=== PATIENT | male | born 1980 | race African-American/Black ===

== ENCOUNTER 2016-11-15 03:35 | Observation (INO) | payer SELFPAY ==
[~2016-11-15] VITALS: Ht 180.3 cm; Wt 80.0 kg
[2016-11-15] VITALS (7 sets, daily range): BP systolic 119–161; BP diastolic 63–95; PULSE 65–93; RESP 14–19; TEMP 97.5–98.3; O2SAT 95–100
[2016-11-15] MEDS: SODIUM CHLOR 0.9% 1000 ML INJ 1,000 ML IV SCH ×3 (03:00→15:40)
[2016-11-15] MEDS ORDERED: SODIUM CHLOR 0.9% 1000 ML INJ 1,000 ML IV ONE (05:00)
[2016-11-15] MEDS ORDERED: DIVA500T PO (05:38)
[2016-11-15] MEDS ORDERED: OLAN5TAB PO (05:38)
[2016-11-15 05:51] LABS: BASOPHIL % 0.4 % (0.0-2.0); EOSINOPHIL # 0.1 TH/MM3 (0-0.4); EOSINOPHIL % 0.9 % (0.0-4.0); HEMATOCRIT 40.8 % (39.0-51.0); HEMO FLAGS DIFF FINAL; LYMPH % 20.6 % (9.0-44.0); LYMPHOCYTE # 2.3 TH/MM3 (1.0-4.8); MEAN CELL VOLUME 93.1 FL (80.0-100.0); MEAN CORPUSCULAR HEMOGLOBIN 32.3 PG (27.0-34.0); MEAN CORPUSCULAR HGB CONC 34.7 % (32.0-36.0); MONO % 14.2 % (0.0-8.0); NEUT % 63.9 % (16.0-70.0); PLATELET COUNT 153 TH/MM3 (150-450); RED BLOOD COUNT 4.38 MIL/MM3 (4.50-5.90); RED CELL DISTRIBUTION WIDTH 13.6 % (11.6-17.2)
[2016-11-15 06:09] LABS: ALT (GPT) 31 U/L (12-78); ANION GAP 11 MEQ/L (5-15); AST (GOT) 30 U/L (15-37); BICARBONATE 24.3 MEQ/L (21.0-32.0); BLOOD UREA NITROGEN 17 MG/DL (7-18); CHLORIDE 104 MEQ/L (98-107); GLOMERULAR FILTRATION RATE 73 ML/MIN (>89); POTASSIUM 3.7 MEQ/L (3.5-5.1); SODIUM (NA) 139 MEQ/L (136-145)
[2016-11-15 06:11] LABS: ALKALINE PHOSPHATASE 60 U/L (45-117); TOTAL BILIRUBIN ADULT 0.5 MG/DL (0.2-1.0)
[2016-11-15 06:13] LABS: ACETAMINOPHEN LESS THAN 2.0 MCG/ML (10.0-30.0)
[2016-11-15] MEDS ORDERED: ACTIVATED CHARCOAL/SORBITOL LIQUID 25 GM/120 ML BTL NG ONE (07:00)
--- NOTE | 2016-11-15 08:22 | PD ---
HPI Chief Complaint: Suicide Ideation/Attempt Time Seen by Provider: 04:44 Travel History International Travel<30 days: No Contact w/Intl Traveler<30days: No Traveled to known affect area: No History of Present Illness HPI Patient is a 36 year old male who comes in after an intentional overdose in a suicide attempt today. He says he took several Depakote and two Zyprexa this evening in an attempt to kill himself. He also admits to using cocaine. Currently, he has no specific symptoms. He denies any chest pain or SOB. He denies nausea or vomiting. PFSH Past Medical History Bipolar Disorder: Yes Depression: Yes Immunizations Current: Yes Tetanus Vaccination: Unknown Past Surgical History Surgical History: No Previous Surgery Social History Alcohol Use: Yes Tobacco Use: Yes Substance Use: Yes (marijuana) Allergies-Medications (Allergen,Severity, Reaction): Coded Allergies: Latuda (Unverified Allergy, Mild, 11/15/16) Percocet (Unverified Allergy, Mild, 11/15/16) Reported Meds & Prescriptions Reported Meds & Active Scripts Active Reported Olanzapine 5 Mg Tab 5 Mg PO DAILY Divalproex DR (Divalproex Sodium) 500 Mg Tabdr 500 Mg PO DAILY Review of Systems Except as stated in HPI: all other systems reviewed are Neg General / Constitutional: No: Fever, Chills Eyes: No: Blurred Vision HENT: No: Headaches, Lightheadedness Cardiovascular: No: Chest Pain or Discomfort Respiratory: No: Shortness of Breath Gastrointestinal: No: Nausea, Vomiting, Abdominal Pain Musculoskeletal: No: Myalgias, Edema, Pain Neurologic: No: Weakness, Dizziness Psychiatric: Positive: Suicidal Ideations Physical Exam Narrative GENERAL: Awake and alert, in no acute distress. SKIN: Warm and dry. HEAD: Atraumatic. Normocephalic. EYES: Pupils equal and round. No scleral icterus. ENT: Mucous membranes pink and moist. NECK: Trachea midline. No JVD. CARDIOVASCULAR: Regular rate and rhythm. No murmur appreciated. RESPIRATORY: No accessory muscle use. Clear to auscultation. Breath sounds equal bilaterally. GASTROINTESTINAL: Abdomen soft, non-tender, nondistended. MUSCULOSKELETAL: No obvious deformities. No clubbing. No cyanosis. No edema. NEUROLOGICAL: Awake and alert. No obvious cranial nerve deficits. Motor grossly within normal limits. Normal speech. PSYCHIATRIC: Appropriate mood and affect; insight and judgment normal. Data Data Last Documented VS Vital Signs Date Time Temp Pulse Resp B/P Pulse Ox O2 Delivery O2 Flow Rate FiO2 11/15/16 07:56 89 14 119/73 96 Room Air 11/15/16 03:49 98.2 Orders Complete Blood Count With Diff (11/15/16 04:54) Comprehensive Metabolic Panel (11/15/16 04:54) Psych Screen (11/15/16 04:54) Drug Screen, Random Urine (11/15/16 04:54) Alcohol (Ethanol) (11/15/16 04:54) Salicylates (Aspirin) (11/15/16 04:54) Tylenol (Acetaminophen) (11/15/16 04:54) Valproic Acid (Depakene) (11/15/16 04:54) Sodium Chlor 0.9% 1000 Ml Inj (Ns 1000 M (11/15/16 05:00) Electrocardiogram (11/15/16 ) Charcoal Active-Sorbitol Liq (Charcoal A (11/15/16 07:00) Valproic Acid (Depakene) (11/15/16 07:07) Ammonia (11/15/16 08:14) Labs Laboratory Tests Test 11/15/16 11/15/16 05:17 07:25 White Blood Count 11.0 TH/MM3 Red Blood Count 4.38 MIL/MM3 Hemoglobin 14.2 GM/DL Hematocrit 40.8 % Mean Corpuscular Volume 93.1 FL Mean Corpuscular Hemoglobin 32.3 PG Mean Corpuscular Hemoglobin 34.7 % Concent Red Cell Distribution Width 13.6 % Platelet Count 153 TH/MM3 Mean Platelet Volume 10.2 FL Neutrophils (%) (Auto) 63.9 % Lymphocytes (%) (Auto) 20.6 % Monocytes (%) (Auto) 14.2 % Eosinophils (%) (Auto) 0.9 % Basophils (%) (Auto) 0.4 % Neutrophils # (Auto) 7.0 TH/MM3 Lymphocytes # (Auto) 2.3 TH/MM3 Monocytes # (Auto) 1.6 TH/MM3 Eosinophils # (Auto) 0.1 TH/MM3 Basophils # (Auto) 0.0 TH/MM3 CBC Comment DIFF FINAL Differential Comment Sodium Level 139 MEQ/L Potassium Level 3.7 MEQ/L Chloride Level 104 MEQ/L Carbon Dioxide Level 24.3 MEQ/L Anion Gap 11 MEQ/L Blood Urea Nitrogen 17 MG/DL Creatinine 1.33 MG/DL Estimat Glomerular Filtration 73 ML/MIN Rate Random Glucose 96 MG/DL Calcium Level 9.5 MG/DL Total Bilirubin 0.5 MG/DL Aspartate Amino Transf 30 U/L (AST/SGOT) Alanine Aminotransferase 31 U/L (ALT/SGPT) Alkaline Phosphatase 60 U/L Total Protein 7.8 GM/DL Albumin 4.0 GM/DL Salicylates Level LESS THAN 1.7 MG/DL Acetaminophen Level LESS THAN 2.0 MCG/ML Valproic Acid (Depakene) Level 98 MCG/ML 157 MCG/ML Ethyl Alcohol Level LESS THAN 3 MG/DL [facility] Medical Decision Making Medical Screen Exam Complete: Yes Emergency Medical Condition: Yes Medical Record Reviewed: Yes Interpretation(s) ECG shows sinus rhythm at 80, no ST elevation or depression, no QT prolongation Differential Diagnosis Overdose versus drug intoxication versus psychosis Narrative Course Patient is a 36-year-old male who comes in after an intentional overdose today. He does say he hears voices telling him to kill himself. He denies any other medical complaints at this time. Exam shows no acute abnormalities. IV established, labs sent. And trouble who advised observing for any QT prolongation and repeating his Depakote level every 2 hours to make sure does not rise. Patient was given activated charcoal as he took extended release Depakote. Given IV fluids. First Depakote level was 98. It then jas to 150. Patient is still not having any symptoms. He will be admitted for further management. Patient is under a Storey act. Diagnosis Primary Impression: Intentional overdose of drug in tablet form Admitting Information Admitting Physician Requests: Admit Khadijah Bonilla MD Nov 15, 2016 08:22
[2016-11-15] MEDS ORDERED: SODIUM CHLORIDE 0.9% FLUSH 5 ML FLUSH FLUSH PRN (08:45)
[2016-11-15] MEDS ORDERED: ONDANSETRON HCL 4 MG/2 ML VIAL IVP PRN (08:45)
[2016-11-15] MEDS ORDERED: NALOXONE HCL 0.4 MG/ML AMP IV PRN (08:45)
[2016-11-15] MEDS: DOCUSATE SODIUM 100 MG CAP PO SCH ×2 (09:00→21:00)
[2016-11-15] MEDS: SODIUM CHLORIDE 0.9% FLUSH 5 ML FLUSH FLUSH SCH ×2 (09:00→21:00)
[2016-11-15 09:58] LABS: AMPHETAMINE, URINE NEG (NEG); BARBITURATES, URINE NEG (NEG); COCAINE, URINE POS (NEG)
--- NOTE | 2016-11-15 10:01 | HHI.HP ---
[facility] Service [facility] Primary Care Physician No Primary Care Physician Admission Diagnosis depakote toxicity Diagnoses: (1) Intentional overdose of drug in tablet form Diagnosis: Principal Travel History International Travel<30 Days: No Contact w/Intl Traveler <30 Da: No Traveled to Known Affected Are: No History of Present Illness This is a pleasant 36 y/o Male who came To ER after Intentional overdose as Suicide attempt he took several doses of Depakote and two Zyprexa, admits to use Cocaine, asymptomatic in ER, denied Chest pain or shortness of breath. has Bipolar Disorder, Depression. seen in Emergency room in the presence of nurse Mr. Golden and Sitter by his side, patient stable totally asymptomatic. Past Family Social History Past Medical History Bipolar Disorder Depression Past Surgical History No Past Surgical History. Reported Medications Olanzapine 5 Mg Tab 5 Mg PO DAILY Divalproex DR (Divalproex Sodium) 500 Mg Tabdr 500 Mg PO DAILY Allergies: Coded Allergies: Latuda (Unverified Allergy, Mild, 11/15/16) Percocet (Unverified Allergy, Mild, 11/15/16) Active Ordered Medications Current Medications Medications (Trade) Dose Ordered Sig/Benedict Route Start Time Stop Time Status Last Admin (NS 1000 ml Inj) 1,000 ml @ 150 mls/hr Q6H40M IV 11/15/16 09:00 11/15/16 09:28 (NS Flush) 2 ml UNSCH PRN FLUSH 11/15/16 08:45 (NS Flush) 2 ml BID FLUSH 11/15/16 09:00 (Zofran Inj) 4 mg Q6H PRN IVP 11/15/16 08:45 (Colace) 100 mg Q12HR PO 11/15/16 09:00 (Narcan Inj) 0.4 mg UNSCH PRN IV 11/15/16 08:45 Family History Mother with Mouth Cancer, Metastatic. Social History Alcohol abuse, Tobacco dependency, and abuse marijuana. Physical Exam Vital Signs Vital Signs Date Time Temp Pulse Resp B/P Pulse Ox O2 Delivery O2 Flow Rate FiO2 11/15/16 09:06 93 14 122/70 98 Room Air 11/15/16 07:56 89 14 119/73 96 Room Air 11/15/16 07:21 89 16 141/92 99 Room Air 11/15/16 03:49 98.2 91 18 161/95 100 Room Air Physical Exam GENERAL: Awake and alert, in no acute distress. SKIN: Warm and dry. HEAD: Atraumatic. Normocephalic. EYES: Pupils equal and round. No scleral icterus. ENT: Mucous membranes pink and moist. NECK: Trachea midline. No JVD. CARDIOVASCULAR: Regular rate and rhythm. No murmur appreciated. RESPIRATORY: No accessory muscle use. Clear to auscultation. Breath sounds equal bilaterally. GASTROINTESTINAL: Abdomen soft, non-tender, nondistended. MUSCULOSKELETAL: No obvious deformities. No clubbing. No cyanosis. No edema. NEUROLOGICAL: Awake and alert. No obvious cranial nerve deficits. Motor grossly within normal limits. Normal speech. PSYCHIATRIC: Appropriate mood and affect; insight and judgment normal. Laboratory Laboratory Tests Test 11/15/16 11/15/16 11/15/16 05:17 07:25 09:00 White Blood Count 11.0 Red Blood Count 4.38 Hemoglobin 14.2 Hematocrit 40.8 Mean Corpuscular Volume 93.1 Mean Corpuscular Hemoglobin 32.3 Mean Corpuscular Hemoglobin 34.7 Concent Red Cell Distribution Width 13.6 Platelet Count 153 Mean Platelet Volume 10.2 Neutrophils (%) (Auto) 63.9 Lymphocytes (%) (Auto) 20.6 Monocytes (%) (Auto) 14.2 Eosinophils (%) (Auto) 0.9 Basophils (%) (Auto) 0.4 Neutrophils # (Auto) 7.0 Lymphocytes # (Auto) 2.3 Monocytes # (Auto) 1.6 Eosinophils # (Auto) 0.1 Basophils # (Auto) 0.0 CBC Comment DIFF FINAL Differential Comment Sodium Level 139 Potassium Level 3.7 Chloride Level 104 Carbon Dioxide Level 24.3 Anion Gap 11 Blood Urea Nitrogen 17 Creatinine 1.33 Estimat Glomerular Filtration 73 Rate Random Glucose 96 Calcium Level 9.5 Total Bilirubin 0.5 Aspartate Amino Transf 30 (AST/SGOT) Alanine Aminotransferase 31 (ALT/SGPT) Alkaline Phosphatase 60 Total Protein 7.8 Albumin 4.0 Salicylates Level LESS THAN 1.7 Acetaminophen Level LESS THAN 2.0 Valproic Acid (Depakene) Level 98 157 Ethyl Alcohol Level LESS THAN 3 Ammonia 40 Result Diagram: 11/15/16 0511/15/16516 Imaging No Imaging studies taken. Assessment and Plan Assessment and Plan 1. Intentional Drug Overdose/Suicide attempt, Valproic acid levels in 150, ECG showed sinus rhythm at [address] elevation or depression no QT interval prolongation. admitted for observation for 12 hours and follow Psychiatry specialist recommendations for possible admission to Inpatient Psych. continue Cardiac Monitoring. received Activated Charcoal in Emergency room, patient Asymptomatic. continue IV fluids. Continue Storey Act. last Valproic acid level is 180 mcg/ml will continue to keep patient hospitalized as per Poison control will need Valproic acid every two hours until seen decreased levels for two consecutive values. 2. Bipolar Disorder/Depression stable at this time. consult placed to Psychiatry specialist Discussed with Patient, Nurse Efrain Ch[place] and Burton. IV fluids continue at 150 ml per hour with Normal Saline. Discussed with Emergency Medicine Specialist Doctor Khadijah Bonilla Appreciated. Code Status Full Code. Physician Certification 2 Midnight Certification Type: Admission for Inpatient Services Order for Inpatient Services The services are ordered in accordance with Medicare regulations or non- Medicare payer requirements, as applicable. In the case of services not specified as inpatient-only, they are appropriately provided as inpatient services in accordance with the 2-midnight benchmark. Estimated LOS (days): 1 days is the estimated time the patient will need to remain in the hospital, assuming treatment plan goals are met and no additional complications. Post-Hospital Plan: Rehan Hale MD Nov 15, 2016 10:01
--- NOTE | 2016-11-15 15:23 | PD.CONS ---
Provisional Diagnosis Admission Date Nov 15, 2016 at 08:36 Baldwin I. Delirium due to drug overdose F 19.921 History of Present Illness Service Psychiatry Consult Requested By Attending Suzan Reason for Consult [facility] Primary Care Physician No Primary Care Physician HPI Patient is a 36-year-old Afro-Turkish male under [facility] act signed by Khadijah Arreguin dated November 15, 2016 1450 a.m. stating bipolar depression patient with multiple Depakote and Zyprexa and attempt to kill himself patient seen screened in ED Depakote level has been measured into the toxic range is now being treated for that. His urine toxicology is also positive for cocaine. At the present time patient seen in his room with nurse Meredith. Patient drowsy sedated eyes closed though when asked questions to slowly responses are fairly appropriate manner though without making any eye contact. Patient does have bottles of his Depakote and Zyprexa from [facility] dated from the November 10. Patient minimizes his drug use that he only uses cocaine occasionally. States his overdose was initially trying to catch up of his medications then go up suicidality today states he remains suicidal. Appears to be some significant substance influence behaviors. He states is essentially homeless at the present time. He is vague about any voices or visions. In any event at the present time it appears patient is more delirious we need to monitor that we need to monitor his resolution from the Depakote overdose. At this time we will continue the [facility] act and reassess for the possibility of inpatient hospitalization either here or return to [facility]. Review of Systems ROS Limitations: Clinical Condition, Altered Mental Status Past Family Social History Coded Allergies: Latuda (Unverified Allergy, Mild, 11/15/16) Percocet (Unverified Allergy, Mild, 11/15/16) Past Medical History Unknown at this time Reported Medications Olanzapine 5 Mg Tab5 Mg PO DAILY #30 TAB Ref 0 11/15/[address] 500 Mg [id number] Mg PO DAILY #60 TAB Ref 0 11/15/16 Current Medications Medications (Trade) Dose Ordered Sig/Benedict Route Start Time Stop Time Status Last Admin (NS 1000 ml Inj) 1,000 ml @ 150 mls/hr Q6H40M IV 11/15/16 09:00 11/15/16 09:28 (NS Flush) 2 ml UNSCH PRN FLUSH 11/15/16 08:45 (NS Flush) 2 ml BID FLUSH 11/15/16 09:00 (Zofran Inj) 4 mg Q6H PRN IVP 11/15/16 08:45 (Colace) 100 mg Q12HR PO 11/15/16 09:00 (Narcan Inj) 0.4 mg UNSCH PRN IV 11/15/16 08:45 Family History Unknown at this time Social History Unknown at this time but appears to be homeless Patient's Strengths (min. 2) Patient able to access healthcare patient appears cooperative guarded Physical Exam Please see ED assessments Vital Signs Vital Signs Date Time Temp Pulse Resp B/P Pulse Ox O2 Delivery O2 Flow Rate FiO2 11/15/16 14:11 97.5 65 18 137/73 95 11/15/16 09:06 Room Air Mental Status Examination Drowsy to sedated to arousable Afro-Turkish male quite guarded in his responses which are somewhat delayed. Making no eye contact Appearance Somewhat disheveled Speech: Hesitant, Slow, Circumstantial, Tangential Orientation: Person, Place, Situation Memory: Unremarkable Thought Process: Linear Thought Content: Paranoid Hallucination Type: None (denies) Attention and Concentration: Other (poor) Suicidal Ideation: Yes (continue suicidal though I question if there is a manipulative component to this) Previous Suicide Attempts: No Homicidal Ideation: No Previous Homicide Attempts: No Insight: Poor Judgement: Poor Affect: Other (decreased range and intensity) Mood: Sad, Other (restricted) Motor Activity: Normal gait Assessment & Plan Problem List: (1) Delirium, drug-induced ICD Code: F19.921 Assessment & Plan Estimated LOS: august recommend continuation of treatment of the head Depakote overdose and monitoring situation. While he is under Storey act I question whether there may be a degree of manipulation with this need to reassess further next 24-48 hours to determine if he really would meet criteria for inpatient psychiatric hospitalization and though that would be better served through [facility] act CSU Request HC Surrog/Guard Advoc?: Santosh Trejo MD Nov 15, 2016 15:22
--- NOTE | 2016-11-15 19:11 | EKG ---
Date Performed: 11/15/2016 Time Performed: 04:02:43 PTAGE: 36 years EKG: Sinus rhythm POSSIBLE RIGHT VENTRICULAR CONDUCTION DELAY Since previous tracing, no significant change noted [facility]3] ECG PREVIOUS TRACING : 03/11/2001 19.09.44 DOCTOR: Doroteo Flores Interpretating Date/Time 11/15/2016 19:11:36
[2016-11-16 00:27] VITALS: BP 120/66; PULSE 83; RESP 19; TEMP 98.3; O2SAT 97
[2016-11-16 03:24] VITALS: BP 121/56; PULSE 75; RESP 20; TEMP 98.2; O2SAT 98
[2016-11-16] MEDS: SODIUM CHLOR 0.9% 1000 ML INJ 1,000 ML IV SCH (05:00)
--- NOTE | 2016-11-16 08:05 | HHI.PR ---
Subjective Remarks This is a pleasant 36 y/o Male who came To ER after Intentional overdose as Suicide attempt he took several doses of Depakote and two Zyprexa, admits to use Cocaine, asymptomatic in ER, denied Chest pain or shortness of breath. has Bipolar Disorder, Depression. seen in G Pod with Burton and discussed with nurse Miss Almaguer no new issues, okay from Medicine standpoint to transfer to Inpatient Psych unit. Objective Vital Signs Date Time Temp Pulse Resp B/P Pulse Ox O2 Delivery O2 Flow Rate FiO2 11/16/16 03:24 98.2 75 20 121/56 98 11/16/16 00:27 98.3 83 19 120/66 97 11/15/16 20:00 86 11/15/16 19:15 98.3 79 19 127/63 100 11/15/16 14:11 97.5 65 18 137/73 95 11/15/16 09:06 93 14 122/70 98 Room Air I/O 11/15/16 11/15/16 11/15/16 11/16/16 11/16/16 11/16/16 07:00 15:00 23:00 07:00 15:00 23:00 Intake Total 1840 ml Balance 1840 ml Intake Oral 240 ml IV Total 1600 ml # Voids 2 Result Diagram: 11/15/1651611/15/16516 Imaging No Imaging studies performed. Procedures Activated Charcoal Other Results Laboratory Tests Test 11/15/16 11/15/16 11/15/16 11/15/16 05:17 09:00 09:40 16:14 White Blood Count 11.0 TH/MM3 Red Blood Count 4.38 MIL/MM3 Hemoglobin 14.2 GM/DL Hematocrit 40.8 % Mean Corpuscular Volume 93.1 FL Mean Corpuscular Hemoglobin 32.3 PG Mean Corpuscular Hemoglobin 34.7 % Concent Red Cell Distribution Width 13.6 % Platelet Count 153 TH/MM3 Mean Platelet Volume 10.2 FL Neutrophils (%) (Auto) 63.9 % Lymphocytes (%) (Auto) 20.6 % Monocytes (%) (Auto) 14.2 % Eosinophils (%) (Auto) 0.9 % Basophils (%) (Auto) 0.4 % Neutrophils # (Auto) 7.0 TH/MM3 Lymphocytes # (Auto) 2.3 TH/MM3 Monocytes # (Auto) 1.6 TH/MM3 Eosinophils # (Auto) 0.1 TH/MM3 Basophils # (Auto) 0.0 TH/MM3 CBC Comment DIFF FINAL Differential Comment Sodium Level 139 MEQ/L Potassium Level 3.7 MEQ/L Chloride Level 104 MEQ/L Carbon Dioxide Level 24.3 MEQ/L Anion Gap 11 MEQ/L Blood Urea Nitrogen 17 MG/DL Creatinine 1.33 MG/DL Estimat Glomerular Filtration 73 ML/MIN Rate Random Glucose 96 MG/DL Calcium Level 9.5 MG/DL Total Bilirubin 0.5 MG/DL Aspartate Amino Transf 30 U/L (AST/SGOT) Alanine Aminotransferase 31 U/L (ALT/SGPT) Alkaline Phosphatase 60 U/L Total Protein 7.8 GM/DL Albumin 4.0 GM/DL Salicylates Level LESS THAN 1.7 MG/DL Acetaminophen Level LESS THAN 2.0 MCG/ML Ethyl Alcohol Level LESS THAN 3 MG/DL Ammonia 40 MCMOL/L Urine Opiates Screen NEG Urine Barbiturates Screen NEG Urine Amphetamines Screen NEG Urine Benzodiazepines Screen NEG Urine Cocaine Screen POS Urine Cannabinoids Screen NEG Valproic Acid (Depakene) Level 127 MCG/ML Objective Remarks GENERAL: Awake and alert, in no acute distress. SKIN: Warm and dry. HEAD: Atraumatic. Normocephalic. EYES: Pupils equal and round. No scleral icterus. ENT: Mucous membranes pink and moist. NECK: Trachea midline. No JVD. CARDIOVASCULAR: Regular rate and rhythm. No murmur appreciated. RESPIRATORY: No accessory muscle use. Clear to auscultation. Breath sounds equal bilaterally. GASTROINTESTINAL: Abdomen soft, non-tender, nondistended. MUSCULOSKELETAL: No obvious deformities. No clubbing. No cyanosis. No edema. NEUROLOGICAL: Awake and alert. No obvious cranial nerve deficits. Motor grossly within normal limits. Normal speech. PSYCHIATRIC: Appropriate mood and affect; insight and judgment normal. Medications and IVs Current Medications Medications (Trade) Dose Ordered Sig/Benedict Route Start Time Stop Time Status Last Admin (NS 1000 ml Inj) 1,000 ml @ 150 mls/hr Q6H40M IV 11/15/16 09:00 11/15/16 03:00 (NS Flush) 2 ml UNSCH PRN FLUSH 11/15/16 08:45 (NS Flush) 2 ml BID FLUSH 11/15/16 09:00 (Zofran Inj) 4 mg Q6H PRN IVP 11/15/16 08:45 (Colace) 100 mg Q12HR PO 11/15/16 09:00 (Narcan Inj) 0.4 mg UNSCH PRN IV 11/15/16 08:45 A/P Problem List: (1) Intentional overdose of drug in tablet form ICD Code: T50.902A (2) Delirium, drug-induced ICD Code: F19.921 Assessment and Plan 1. Intentional Drug Overdose/Suicide attempt, Valproic acid levels in 150, ECG showed sinus rhythm at [address] elevation or depression no QT interval prolongation. admitted for observation for 12 hours and follow Psychiatry specialist recommendations for possible admission to Inpatient Psych. continue Cardiac Monitoring. received Activated Charcoal in Emergency room, patient Asymptomatic. continue IV fluids. Continue Storey Act. last Valproic acid level is 180 mcg/ml will continue to keep patient hospitalized as per Poison control will need Valproic acid every two hours until seen decreased levels for two consecutive values. new values decreasing okay to transfer to Inpatient psych unit as recommended by Psychiatry specialist. 2. Bipolar Disorder/Depression stable at this time. Discussed with Patient, Nurse Miss Winters. Discharge Planning Medically clear to be transferred to Inpatient Psychiatric unit. Rehan Schumacher MD Nov 16, 2016 08:05
[2016-11-16] MEDS: SODIUM CHLORIDE 0.9% FLUSH 5 ML FLUSH FLUSH SCH (08:07)
[2016-11-16] MEDS: DOCUSATE SODIUM 100 MG CAP PO SCH (08:08)
[2016-11-16 08:19] VITALS: BP 135/75; PULSE 70; RESP 18; TEMP 97.9; O2SAT 99
[2016-11-16 11:17] VITALS: PULSE 58
--- NOTE | 2016-11-16 15:06 | HHI.PYPN ---
Subjective Remarks Patient seen in his room with nurse Shannon, patient significantly more alert vaguely disoriented but calm and appropriate stating he is medically plan to [facility] act in the past has been hospitalized in the past that appears she has had episodes of auditory hallucinations of command nature telling him to do "bad" things that into the overdose of Depakote. He also states she is a "wanderer" around various [facility] and [facility]. Any event at the present time patient is still meets criteria for involuntary psychiatric hospitalization. It appears she has been medically cleared thus is okay to transfer the patient [facility] there is a bed available to 2600 unit will have the nurse call our charge nurse to arrange for the transfer Review of Systems Except as stated in HPI: all other systems reviewed are Neg Objective Alert: Yes [place]: Person, Place Mood: Calm Affect: Restricted Memory Intact: Comment (somewhat confused) Hallucinations: Auditory (intermittent no command type) Delusions: Yes Delusion Type: Paranoid Suicidal: Ideation (vague denies at the present time) Homicidal: Ideation Insight/Judgement Poor Labs Test 11/15/16 16:14 Valproic Acid (Depakene) Level 127 MCG/ML Vitals/IOs Vital Signs Date Time Temp Pulse Resp B/P Pulse Ox O2 Delivery O2 Flow Rate FiO2 11/16/16 11:17 58 11/16/16 08:19 97.9 18 135/75 99 11/15/16 09:06 Room Air Assessment & Plan Problem List: (1) Delirium, drug-induced ICD Code: F19.921 (2) Bipolar I disorder, most recent episode mixed, severe with psychotic features ICD Code: F31.64 Assessment & Plan Estimated LOS: days she medically cleared will transfer to [facility] further care and attention the medication management Justification for Cont. Inpt. This time patient will decompensate placed a lower level of care Discharge Planning To be determined Request HC Surrog/Guard Advoc?: No Santosh Augustin MD Nov 16, 2016 15:06
--- NOTE | 2016-11-16 17:43 | HHI.DS ---
Discharge Summary Admission Date Nov 15, 2016 at 08:36 Discharge Date: Nov 16, 2016 Admitting Diagnosis depakote toxicity (1) Intentional overdose of drug in tablet form ICD Code: T50.902A Diagnosis: Principal (2) Bipolar I disorder, most recent episode mixed, severe with psychotic features ICD Code: F31.64 Diagnosis: Principal Procedures Activated Charcoal Brief History - From Admission This is a pleasant 36 y/o Male who came To ER after Intentional overdose as Suicide attempt he took several doses of Depakote and two Zyprexa, admits to use Cocaine, asymptomatic in ER, denied Chest pain or shortness of breath. has Bipolar Disorder, Depression. seen in Emergency room in the presence of nurse Mr. Golden and Sitter by his side, patient stable totally asymptomatic. CBC/BMP: 11/15/16 0517 11/15/16 0517 Significant Findings Laboratory Tests Test 11/15/16 11/15/16 11/15/16 11/15/16 05:17 07:25 09:00 09:40 Red Blood Count 4.38 MIL/MM3 (4.50-5.90) Monocytes (%) (Auto) 14.2 % (0.0-8.0) Monocytes # (Auto) 1.6 TH/MM3 (0-0.9) Creatinine 1.33 MG/DL (0.60-1.30) Estimat Glomerular Filtration 73 ML/MIN (>89) Rate Salicylates Level LESS THAN 1.7 MG/DL (2.8-20.0) Acetaminophen Level LESS THAN 2.0 MCG/ML (10.0-30.0) Valproic Acid (Depakene) Level 157 MCG/ML (50-100) Ammonia 40 MCMOL/L (11-32) Urine Cocaine Screen POS (NEG) Test 11/15/16 11/15/16 11/15/16 09:50 12:14 16:14 Valproic Acid (Depakene) Level 180 MCG/ML 159 MCG/ML 127 MCG/ML (50-100) (50-100) (50-100) Imaging No imaging studies performed Hospital Course This is a pleasant 36 y/o Male who came To ER after Intentional overdose as Suicide attempt he took several doses of Depakote and two Zyprexa, admits to use Cocaine, asymptomatic in ER, denied Chest pain or shortness of breath. has Bipolar Disorder, Depression. seen in G Pod with Burton and discussed with nurse Miss Almaguer no new issues, okay from Medicine standpoint to transfer to Inpatient Psych unit. (1) Intentional overdose of drug in tablet form ICD Code: T50.902A (2) Delirium, drug-induced ICD Code: F19.921 Assessment and Plan 1. Intentional Drug Overdose/Suicide attempt, Valproic acid levels in 150, ECG showed sinus rhythm at [address] elevation or depression no QT interval prolongation. admitted for observation for 12 hours and follow Psychiatry specialist recommendations for possible admission to Inpatient Psych. continue Cardiac Monitoring. received Activated Charcoal in Emergency room, patient Asymptomatic. continue IV fluids. Continue Storey Act. last Valproic acid level is 180 mcg/ml will continue to keep patient hospitalized as per Poison control will need Valproic acid every two hours until seen decreased levels for two consecutive values. new values decreasing okay to transfer to Inpatient psych unit as recommended by Psychiatry specialist. 2. Bipolar Disorder/Depression stable at this time. Discussed with Patient, Nurse Miss Almaguer and Burton. Discharge Planning Medically clear to be transferred to Inpatient Psychiatric unit. Pt Condition on Discharge: Good Discharge Disposition: Disc to Psych Care Fac Discharge Time: <= 30 minutes Discharge Instructions DIET: Follow Instructions for: As Tolerated, No Restrictions Speech Therapy-Diet Recommends: Regular Activities you can perform: Regular-No Restrictions Rehan Schumacher MD Nov 16, 2016 17:43
== END 2016-11-16 15:51 | disposition home or self-care (01) ==
LOC: NEPC 03:35 → INTOOBSV 08:36 → OBSVTOIN 08:36 → NEDA 08:36 → NEPGCP 12:30 → UNDODISOB 11-16 15:51
PROVIDERS: ADMIT Internal Medicine; ATTEND Internal Medicine
DX: T42.6X2A Poisoning by other antiepileptic and sedative-hypnotic drugs, intentional self-harm, initial encounter (principal); R41.82 Altered mental status, unspecified; F19.921 Other psychoactive substance use, unspecified with intoxication with delirium; F31.64 Bipolar disorder, current episode mixed, severe, with psychotic features; F17.200 Nicotine dependence, unspecified, uncomplicated; R94.31 Abnormal electrocardiogram [ECG] [EKG]; Z80.8 Family history of malignant neoplasm of other organs or systems
CPT/HCPCS: 80053; 80164; 80307; 82140; 85025; 93005; 96360; 99285; G0378; J7030; 80320

== ENCOUNTER 2016-11-16 15:00 | Inpatient (IN) | payer SELFPAY ==
[~2016-11-16] VITALS: Ht 180.3 cm; Wt 74.1 kg
[~2016-11-16 15:00] MED LIST: DIVA500T PO; OLAN5TAB PO
[2016-11-16] MEDS ORDERED: diphenhydrAMINE HCL 50 MG/ML VIAL - HS PRN IM (17:00)
[2016-11-16] MEDS ORDERED: hydrOXYzine HCL 50 MG TAB PO PRN (17:00)
[2016-11-16] MEDS ORDERED: MAGNESIUM HYDROXIDE SUSP 30 ML CUP PO PRN (17:00)
[2016-11-16] MEDS ORDERED: ACETAMINOPHEN 325 MG TAB PO PRN (17:00)
[2016-11-16] MEDS ORDERED: ALUMINUM/MAGNESIUM/SIMETH 30 ML CUP PO PRN (17:00)
[2016-11-16 18:00] VITALS: BP 149/74; PULSE 77; RESP 18; TEMP 98.2; O2SAT 98
[2016-11-16] MEDS: REMOVE OLD NICOTINE PATCH T-DERMAL SCH (20:31)
[2016-11-16] MEDS: BENZOCAINE-MENTHOL (SUGAR FREE) 15 MG-3.6 MG LOZENGE BUCCAL PRN (21:17)
[2016-11-17 05:51] VITALS: BP 141/85; PULSE 78; RESP 18; TEMP 97.9; O2SAT 98
[2016-11-17 07:53] LABS: ANION GAP 8 MEQ/L (5-15); BICARBONATE 26.6 MEQ/L (21.0-32.0); BLOOD UREA NITROGEN 16 MG/DL (7-18); CHLORIDE 106 MEQ/L (98-107); GLOMERULAR FILTRATION RATE 69 ML/MIN (>89); HDL CHOLESTEROL 37.5 MG/DL (40.0-60.0); LDL CHOLESTEROL 67 MG/DL (0-99); POTASSIUM 3.8 MEQ/L (3.5-5.1); SODIUM (NA) 141 MEQ/L (136-145)
--- NOTE | 2016-11-17 08:57 | PD.CONS ---
HPI Service [facility] Hospitalists Consult Requested By Psychiatry Reason for Consult Depakote overdose, medical management. Primary Care Physician No Primary Care Physician Diagnoses: (1) Bipolar I disorder, most recent episode mixed, severe with psychotic features (2) SABRINA (acute kidney injury) History of Present Illness Mr. Enriquez is a pleasant 36 year old male who is currently under psychiatry service for overdose on Depakote and Zyprexa. Hospitalist service was consulted for medical management. At the time of this interview, patient denies any chest pain, shortness of breath, fever, chills. He says he is not much thirsty and that's why he does not drink much fluid. He requests foods that will make him thirsty. No changes in bowel or bladder habits. Review of Systems ROS Limitations: Other (Negative except as noted in the HPI. ) Past Family Social History Allergies: Coded Allergies: Latuda (Unverified Allergy, Mild, 11/15/16) Percocet (Unverified Allergy, Mild, 11/15/16) Past Medical History Bipolar disorder. Past Surgical History No major surgery in the past. Reported Medications Current Medications Hydroxyzine HCl (Atarax) 50 mg Q6H PRN PO ANXIETY Last administered on t 21:17; Start 11/16/16 at 17:00 Diphenhydramine HCl (Benadryl) 50 mg HS PRN PO INSOMNIA; Start 11/16/16 at 17:00 Diphenhydramine HCl (Benadryl Inj) 50 mg HS PRN IM INSOMNIA; Start 11/16/16 at 17:00 Acetaminophen (Tylenol) 650 mg Q4H PRN PO Pain 1-5 or Temp >101F; Start at 17:00 Magnesium Hydroxide (Milk Of Magnesia Liq) 30 ml DAILY PRN PO CONSTIPATION; Start 11/16/16 at 17:00 Al Hydrox/Mg Hydrox/Simethicone (Mag-Al Plus Susp Liq) 30 ml Q6H PRN PO DYSPEPSIA; Start 11/16/16 at 17:00 Nicotine (Habitrol 21 Mg Patch.24 Hr) 1 patch DAILY T-DERMAL ; Start 11/17/16 at 09:00 Miscellaneous Information 1 HS T-DERMAL ; Start 11/16/16 at 21:00 Benzocaine/Menthol (Cepacol Extra Viviane (Sugar Free)) 1 lozenge Q4H PRN BUCCAL SCRATCHY THROAT Last administered on 11/16/16 21:17; Start 11/16/16 at 18:00 Divalproex Sodium (Depakote Dr) 500 mg BID PO ; Start 11/17/16 at 21:00 Olanzapine (ZyPREXA) 5 mg HS PO ; Start 11/17/16 at 21:00 Citalopram Hydrobromide (CeleXA) 40 mg DAILY PO Last administered on 11/17/16 10:00; Start 11/17/16 at 10:00 Family History Mother - seizure activity Father - Alcoholism Social History Smokes less than a pack a day. Drinks whenever he can. Uses weed occasionally. Physical Exam Vital Signs Vital Signs Date Time Temp Pulse Resp B/P Pulse Ox O2 Delivery O2 Flow Rate FiO2 11/17/16 05:51 97.9 78 18 141/85 98 11/16/16 18:00 98.2 77 18 149/74 98 Physical Exam GENERAL: This is a well-nourished, well-developed patient, in no apparent distress. SKIN: No rashes, ecchymoses or lesions. Warm and dry. HEAD: Atraumatic. Normocephalic. No temporal or scalp tenderness. EYES: Pupils equal round and reactive. No injection or drainage. ENT: Nose without bleeding, purulent drainage or septal hematoma. Airway patent. NECK: Trachea midline. No lymphadenopathy. Supple, nontender, no meningeal signs. CARDIOVASCULAR: Regular rate and rhythm without murmurs, gallops, or rubs. No JVD. RESPIRATORY: Clear to auscultation. Breath sounds equal bilaterally. No wheezes , rales, or rhonchi. GASTROINTESTINAL: Abdomen soft, non-tender, nondistended. No guarding. MUSCULOSKELETAL: Extremities without clubbing, cyanosis, or edema. NEUROLOGICAL: Awake and alert. Cranial nerves II through XII intact. No focal neurological deficits. Normal speech. Laboratory Laboratory Tests Test 11/17/16 06:53 Sodium Level 141 Potassium Level 3.8 Chloride Level 106 Carbon Dioxide Level 26.6 Anion Gap 8 Blood Urea Nitrogen 16 Creatinine 1.40 Estimat Glomerular Filtration 69 Rate Random Glucose 91 Calcium Level 8.7 Triglycerides Level 124 Cholesterol Level 129 LDL Cholesterol 67 HDL Cholesterol 37.5 Cholesterol/HDL Ratio 3.44 Valproic Acid (Depakene) Level 33 Result Diagram: 11/17/16 0653 Assessment and Plan Problem List: (1) Bipolar I disorder, most recent episode mixed, severe with psychotic features ICD Code: F31.64 Status: Acute (2) SABRINA (acute kidney injury) ICD Code: N17.9 Status: Acute (3) Tobacco abuse ICD Code: Z72.0 Status: Acute (4) Alcohol abuse ICD Code: F10.10 Status: Acute Assessment and Plan Mr. Enriquez is a 36 year old male with a history of bipolar disorder who is currently undergoing in patient psychiatric treatments for overdose on depakote and Zyprexa. Depakote level has come down and patient is asymptomatic. - Bipolar disorder - management per psychiatry - Depakote overdose - Valproic acid level 57 --> 180 --> --> 33. - Acute kidney injury Creatinine 1.40. - Encouraged patient to drink more water. Discussed with nursing staff to make sure water is easily accessible. - Will repeat BMP on 11/19/2016. - Tobacco abuse - Alcohol abuse - Counselled patient regarding tobacco and alcohol abuse. Thank you for the consult. We will peripherally follow this patient. Heather Ibrahim DO Nov 17, 2016 08:57
[2016-11-17] MEDS: NICOTINE 21 MG/24 HR PATCH T-DERMAL SCH (09:00)
[2016-11-17 09:01] LABS: HEMOGLOBIN A1b 0.6 %; HEMOGLOBIN Ao 53.8 %; HEMOGLOBIN F 0.8 %; HEMOGLOBIN LA1C 1.2 %; HEMOGLOBIN P3 2.4 %
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
[2016-11-17] MEDS: CITALOPRAM HYDROBROMIDE 40 MG TAB PO SCH (10:00)
[2016-11-17 10:34] LABS: AUTOMATED NEUTROPHIL # 2.6 TH/MM3 (1.8-7.7); BASOPHIL % 0.4 % (0.0-2.0); EOSINOPHIL # 0.1 TH/MM3 (0-0.4); EOSINOPHIL % 2.6 % (0.0-4.0); HEMATOCRIT 36.9 % (39.0-51.0); HEMO FLAGS DIFF FINAL; LYMPH % 31.3 % (9.0-44.0); LYMPHOCYTE # 1.6 TH/MM3 (1.0-4.8); MEAN CELL VOLUME 93.4 FL (80.0-100.0); MEAN CORPUSCULAR HGB CONC 34.3 % (32.0-36.0); NEUT % 49.7 % (16.0-70.0); PLATELET COUNT 131 TH/MM3 (150-450); RED BLOOD COUNT 3.95 MIL/MM3 (4.50-5.90); RED CELL DISTRIBUTION WIDTH 13.3 % (11.6-17.2); WHITE BLOOD COUNT 5.2 TH/MM3 (4.0-11.0)
[2016-11-17 18:57] VITALS: BP 130/65; PULSE 79; RESP 16; TEMP 98; O2SAT 98
[2016-11-17] MEDS: REMOVE OLD NICOTINE PATCH T-DERMAL SCH (21:00)
[2016-11-17] MEDS: DIVALPROEX DR 500 MG TABEC PO SCH (21:00)
[2016-11-17] MEDS: OLANZapine 5 MG TAB PO SCH (22:15)
[2016-11-17] MEDS: diphenhydrAMINE HCL 50 MG CAP - HS PRN PO (22:18)
[2016-11-17] MEDS: BENZOCAINE-MENTHOL (SUGAR FREE) 15 MG-3.6 MG LOZENGE BUCCAL PRN (22:19)
[2016-11-18 06:07] VITALS: BP 116/64; PULSE 73; RESP 16; TEMP 97.9
[2016-11-18] MEDS: NICOTINE 21 MG/24 HR PATCH T-DERMAL SCH (09:00)
[2016-11-18] MEDS: DIVALPROEX DR 500 MG TABEC PO SCH ×2 (09:09→20:19)
[2016-11-18] MEDS: CITALOPRAM HYDROBROMIDE 40 MG TAB PO SCH (09:09)
--- NOTE | 2016-11-18 10:27 | HHI.PYPN ---
Subjective Remarks Patient was seen and discussed with the staff educator. Patient claimed that he has been feeling much better. He slept well. He denied any active auditory or visual hallucinations. He denied any suicidal ideation intentions or plan. Denied any side effects of the medication he is compliant in taking medication and in participating in all the therapeutic activity on the floor. No behavior or management problem reported. Advised to continue with the same treatment Review of Systems Except as stated in HPI: all other systems reviewed are Neg Psychiatric: COMPLAINS OF: Mood changes, Depression Objective Alert: Yes [place]: Person, Place, Date, Situation Mood: Depressed Affect: Restricted Memory Intact: Recent (mildly impaired) Hallucinations: Other (patient denied any active auditory or visual hallucinations) Delusions: No Delusion Type: Other Suicidal: Ideation Homicidal: Ideation (denies any homicidal ideation intentions or plan) Insight/Judgement Fair Labs Test 11/18/16 07:16 Valproic Acid (Depakene) Level 46 MCG/ML Vitals/IOs Vital Signs Date Time Temp Pulse Resp B/P Pulse Ox O2 Delivery O2 Flow Rate FiO2 11/18/16 06:07 97.9 73 16 116/64 11/17/16 18:57 98 Assessment & Plan Problem List: (1) Bipolar affective disorder, depressed ICD Code: F31.30 Assessment & Plan Estimated LOS: days Justification for Cont. Inpt. Monitoring other medication to stabilize his mood Request HC Surrog/Guard Advoc?: No Problem Qualifiers (1) Bipolar affective disorder, depressed: Qualified Code: F31.32 - Bipolar affective disorder, currently depressed, moderate Carlos Nelson MD Nov 18, 2016 10:27
[2016-11-18] MEDS: OLANZapine 5 MG TAB PO SCH (20:19)
[2016-11-18] MEDS: REMOVE OLD NICOTINE PATCH T-DERMAL SCH (20:20)
[2016-11-18] MEDS: BENZOCAINE-MENTHOL (SUGAR FREE) 15 MG-3.6 MG LOZENGE BUCCAL PRN (22:00)
[2016-11-18] MEDS: diphenhydrAMINE HCL 50 MG CAP - HS PRN PO (22:38)
[2016-11-19 06:44] VITALS: BP 129/78; PULSE 79; RESP 17; TEMP 98; O2SAT 97
[2016-11-19 08:18] LABS: POTASSIUM 3.9 MEQ/L (3.5-5.1)
[2016-11-19] MEDS: CITALOPRAM HYDROBROMIDE 40 MG TAB PO SCH (08:49)
[2016-11-19] MEDS: DIVALPROEX DR 500 MG TABEC PO SCH ×2 (08:49→20:18)
[2016-11-19] MEDS: NICOTINE 21 MG/24 HR PATCH T-DERMAL SCH (08:50)
--- NOTE | 2016-11-19 12:00 | HHI.PYPN ---
Subjective Remarks Patient was seen and discussed with the technical staff engineer. Patient reported that he has been doing okay but he was unhappy about being transferred because of the staff not treating him well. And he became somewhat agitated. He is calm he wants to go home soon. He is compliant in taking medication. He denied any suicidal ideation intentions or plan. No side effects were complained from the medication. Continue with the same treatment Review of Systems Except as stated in HPI: all other systems reviewed are Neg Psychiatric: COMPLAINS OF: Mood changes, Depression Objective Alert: Yes [place]: Person, Place, Date, Situation Mood: Depressed Affect: Restricted Memory Intact: Recent (mildly impaired) Hallucinations: Other (patient denied any active auditory or visual hallucinations) Delusions: No Delusion Type: Other Suicidal: Ideation (patient denied any suicidal ideation intentions or plan) Homicidal: Ideation (denies any homicidal ideation intentions or plan) Insight/Judgement Fair to limited Labs Test 11/19/16 07:23 Sodium Level 142 MEQ/L Potassium Level 3.9 MEQ/L Chloride Level 106 MEQ/L Carbon Dioxide Level 26.0 MEQ/L Anion Gap 10 MEQ/L Blood Urea Nitrogen 18 MG/DL Creatinine 1.34 MG/DL Estimat Glomerular Filtration 72 ML/MIN Rate Random Glucose 97 MG/DL Calcium Level 8.5 MG/DL Valproic Acid (Depakene) Level 67 MCG/ML Vitals/IOs Vital Signs Date Time Temp Pulse Resp B/P Pulse Ox O2 Delivery O2 Flow Rate FiO2 11/19/16 06:44 98.0 79 17 129/78 97 Assessment & Plan Problem List: (1) Bipolar affective disorder, depressed ICD Code: F31.30 Assessment & Plan Estimated LOS: days Justification for Cont. Inpt. Monitoring of the medication to control symptoms and behavior Request HC Surrog/Guard Advoc?: No Problem Qualifiers (1) Bipolar affective disorder, depressed: Qualified Code: F31.32 - Bipolar affective disorder, currently depressed, moderate Carlos Nelson MD Nov 19, 2016 12:00
--- NOTE | 2016-11-19 14:35 | HHI.PR ---
Blank section for building Chart reviewed creatinine improving continue to encourage by mouth fluid intake Patient appears medically stable at this point will sign off. If patient's condition changes or further assistance is needed please reconsult Recommend patient follow up with PCP after discharge (Jenn Mendez) Jenn Mendez Nov 19, 2016 14:35 Heather Ibrahim DO Nov 19, 2016 23:40
[2016-11-19 19:40] VITALS: BP 111/64; PULSE 88; RESP 18; TEMP 97.7; O2SAT 100
[2016-11-19] MEDS: OLANZapine 10 MG TAB PO SCH (20:18)
[2016-11-19] MEDS: REMOVE OLD NICOTINE PATCH T-DERMAL SCH (20:18)
[2016-11-19] MEDS: diphenhydrAMINE HCL 50 MG CAP - HS PRN PO (20:18)
[2016-11-19] MEDS: BENZOCAINE-MENTHOL (SUGAR FREE) 15 MG-3.6 MG LOZENGE BUCCAL PRN (20:19)
[2016-11-20 05:28] VITALS: BP 124/68; PULSE 66; RESP 17; TEMP 97.6; O2SAT 97
[2016-11-20] MEDS: CITALOPRAM HYDROBROMIDE 40 MG TAB PO SCH (08:54)
[2016-11-20] MEDS: NICOTINE 21 MG/24 HR PATCH T-DERMAL SCH (08:54)
[2016-11-20] MEDS: DIVALPROEX DR 500 MG TABEC PO SCH ×2 (08:54→20:26)
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
[2016-11-20 18:21] VITALS: BP 150/82; PULSE 84; RESP 17; TEMP 98.3; O2SAT 97
[2016-11-20] MEDS: OLANZapine 10 MG TAB PO SCH (20:26)
[2016-11-20] MEDS: REMOVE OLD NICOTINE PATCH T-DERMAL SCH (20:26)
[2016-11-20] MEDS: diphenhydrAMINE HCL 50 MG CAP - HS PRN PO (20:26)
[2016-11-21] MEDS: BENZOCAINE-MENTHOL (SUGAR FREE) 15 MG-3.6 MG LOZENGE BUCCAL PRN (00:44)
[2016-11-21 05:50] VITALS: BP 146/74; PULSE 87; RESP 18; TEMP 98; O2SAT 97
[2016-11-21] MEDS: NICOTINE 21 MG/24 HR PATCH T-DERMAL SCH (09:00)
[2016-11-21] MEDS: DIVALPROEX DR 500 MG TABEC PO SCH (09:30)
[2016-11-21] MEDS: CITALOPRAM HYDROBROMIDE 40 MG TAB PO SCH (09:30)
[2016-11-21] MEDS ORDERED: OLAN10TA PO (11:29)
[2016-11-21] MEDS ORDERED: CELE40TA PO (11:29)
[2016-11-21] MEDS ORDERED: DIVA500T PO (11:29)
--- NOTE | 2016-11-21 11:29 | HHI.DS ---
Psychiatry Discharge Summary Inpatient Psychiatric care?: Yes Advance Directive: Yes Mental Health AdvanceDirective: No Health Care Proxy: No Admission Admission Date Nov 16, 2016 at 15:00 Admission Diagnosis: (1) Bipolar affective disorder, depressed ICD Code: F31.30 Brief History This is a 36-year-old black single male who was admitted following overdose on Depakote and Zyprexa in an attempt to hurt himself. Patient claimed that he has a history of bipolar affective disorder for the past several years 10+ and he has been following up with the outpatient but she he claimed that he is a wander or he has been going from one hospital or 1 county to the other. He has been in this county for the last 4 days. He does not work. He does admit to hearing voices telling him to either hurt himself or someone else but he is learning to ignore it. He feels safe at the present time in the hospital. He denied any active and passive suicidal ideation intentions or plan. He does admit to history of alcohol and pot abuse. Patient denies any paranoid delusion at this time. He claimed that his family does not care about him and he does not care about them. They're all over the place in [place]. 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 He claimed that he has one daughter 10-year-old out of wedlock. No behavior or management problem reported at this time his willing to cooperate with the treatment and sign voluntary. We will assess criminal justice social worker to assist him maybe finding a place to live. Tobacco Use In Past 30 Days: 5 or More Cigarettes/Day Alcohol Use: 4 or More Times Per Week Hospital Course Patient was admitted to a locked, inpatient psychiatric unit. Appropriate precautions were in place throughout patient's hospital stay. A general medical consultation was obtained. Patient was seen and examined daily on the unit by psychiatry and also visited by counselor. Medications were adjusted. Patient tolerated medications well without side effects. Patient had improvement in his presenting psychiatric symptomatology. There was no evidence of any suicidal or homicidal behavior on the inpatient unit. Patient did issue a verbal threat around the midpoint of his hospital stay to a nurse about another staff member and was subsequently transferred to the higher acuity unit for closer monitoring, but there was no evidence of any associated violent tendencies or behavioral disturbance otherwise. The patient was medication compliant. He has been sleeping and eating well. He has been participating in unit activities to a fair degree. On the day of discharge: Patient seen and examined with counselor. Chart reviewed. Case discussed with nursing staff, counselor and occupational therapist in treatment team. Per nursing staff, patient has been calm and pleasant and has been no behavioral problem on the 2700 unit. Per counselor, patient was able to speak insightfully about his issues with the staff member as noted above. On my examination today, the patient is cooperative with interview and in good behavioral control. He is requesting discharge from the inpatient psychiatric unit today. Mood is improved versus admission per patient report. I can elicit no depressive or hypomanic/manic symptoms. He denies any audiovisual hallucinations, and I can elicit no delusional beliefs, nor is there any other evidence of any psychotic process at this time. He denies any suicidal or homicidal ideation on direct questioning. In particular, the patient denies any homicidal ideation directed against the staff member noted above. In fact, the patient says that he wishes he could apologize to the staff member for making the statement. He is future oriented with several near- and long-term goals. He denies side effects from medications. He has no physical complaints. Weighing the acute, chronic, and protective factors and based on the available evidence, I control center operator to a reasonable degree of medical certainty that the patient is at low imminent risk of harm to self or others from a mental illness and his level of function is adequate for outpatient care. The patient does not meet criteria for involuntary psychiatric hospitalization and given that he is requesting discharge from the inpatient psychiatric unit today , I will arrange for his discharge was psychiatric follow-up as arranged by counselor. Patient is also to follow-up with primary care. I counseled the patient regarding warning signs for need to return to the psychiatric emergency room as part of a general safety plan. I have, in light of his presenting overdose, prescribed the patient with the smallest quantity of medications consistent with good care and have discussed with him the rationale for making this treatment decision, with which he is in agreement. Results Blood Pressure 146 / 74 Vital Signs Date Time Temp Pulse Resp B/P Pulse Ox O2 Delivery O2 Flow Rate FiO2 11/21/16 05:50 98.0 87 18 146/74 97 Laboratory Tests Test 11/19/16 07:23 Creatinine 1.34 MG/DL (0.60-1.30) Estimat Glomerular Filtration 72 ML/MIN (>89) Rate Laboratory Results Test 11/17/16 11/19/16 06:53 07:23 Hemoglobin A1c 5.8 % (4.3-6.0) Triglycerides Level 124 MG/DL (42-150) Cholesterol Level 129 MG/DL (120-200) LDL Cholesterol 67 MG/DL (0-99) HDL Cholesterol 37.5 MG/DL (40.0-60.0) Valproic Acid (Depakene) Level 67 MCG/ML (50-100) Summary of Procedures None done Imaging None done Pending results at discharge: No Medications # of Antipsychotic meds at D/C: 1 Approp Antipsych med options 1 - Minimum of three failed multiple trials of monotherapy. 2 - Documented plan to taper to monotherapy due to previous use of multiple meds OR cross-taper in progress at D/C. 3 - Documentation of augmentation of Clozapine. 4 - Justification other than those listed in allowable values 1-3, document here : Discharge Discharge Date: Nov 21, 2016 Discharge Diagnosis: (1) Bipolar affective disorder, depressed Diagnosis: Principal (stabilized) ICD Code: F31.30 (2) Cocaine abuse Diagnosis: Secondary (counseled to quit) ICD Code: F14.10 GAF on discharge is 55. Mental Status Exam at Disch Patient is casually dressed. He is fairly well groomed and maintaining basic hygiene. He is awake and alert and oriented 3. No abnormal motor movements noted. Speech is within normal limits for rate, tone and volume. Language and fund of knowledge seemed average. Mood is reportedly improved versus admission and affect is fairly full and reactive. Thought process linear. No loosening of associations. No evident delusions. Denies audiovisual hallucinations. Denies suicidal ideation, intent or plan. Denies homicidal ideation, intent or plan. Insight and judgment are fair. Pt Condition on Discharge: Stable Discharge Disposition: Discharge Home Discharge Instructions Diet Instructions: As Tolerated, No Restrictions Activities you can perform: Weight Bearing as Brooke Scheduled Appointment: [facility] Appointment Date: Nov 26, 2016 Appointment Time: 7:30am New Medications: Citalopram (Celexa) 40 Mg Tab 40 MG PO DAILY Mental Health Days 7 Ref [address] (Divalproex DR) 500 Mg Tabdr 500 MG PO BID Mental Health Days 7 Ref 3 TAB Olanzapine (Olanzapine) 10 Mg Tab 10 MG PO HS Mental Health Days 7 Ref 3 TAB Discharge Time <= 30 minutes Discharge/Advance Care Plan Health Problems: (1) Bipolar affective disorder, depressed Goals to promote your health * To prevent worsening of your condition and complications * To maintain your health at the optimal level Directions to meet your goals Take your medications as prescribed Follow your dietary instruction Follow activity as directed Keep your appointments as scheduled Take your immunizations and boosters as scheduled If your symptoms worsen call your PCP, if no PCP go to Urgent Care Center or Emergency Room For 06/04 questions related to your inpatient stay or results of tests pending at discharge, please contact Dr. Montana Stevens at Smoking is Dangerous to Your Health. Avoid second hand smoking Problem Qualifiers (1) Bipolar affective disorder, depressed: Qualified Code: F31.32 - Bipolar affective disorder, currently depressed, moderate Montana Stevens MD Nov 21, 2016 11:29
== END 2016-11-21 13:45 | disposition home or self-care (01) | DRG 918 ==
LOC: H260 15:00 → H270 11-18 15:31
PROVIDERS: ADMIT Psychiatry & Neurology Psychiatry; ATTEND Psychiatry & Neurology Psychiatry
DX: T42.6X2A Poisoning by other antiepileptic and sedative-hypnotic drugs, intentional self-harm, initial encounter (principal); N17.9 Acute kidney failure, unspecified; F31.64 Bipolar disorder, current episode mixed, severe, with psychotic features; T43.592A Poisoning by other antipsychotics and neuroleptics, intentional self-harm, initial encounter; F41.9 Anxiety disorder, unspecified; G47.00 Insomnia, unspecified; F12.90 Cannabis use, unspecified, uncomplicated; F17.210 Nicotine dependence, cigarettes, uncomplicated; F10.10 Alcohol abuse, uncomplicated
CPT/HCPCS: 80048; 80061; 80164; 83036; 85025; Q0163

== ENCOUNTER 2016-12-11 13:35 | Emergency (ER) | payer SELFPAY ==
[~2016-12-11] VITALS: Ht 180.3 cm; Wt 75.0 kg
[~2016-12-11 13:35] MED LIST changes: +CELE40TA PO; +OLAN10TA PO; -OLAN5TAB PO
[2016-12-11 13:37] VITALS: BP 145/85; PULSE 58; RESP 16; TEMP 97.6; O2SAT 99
--- NOTE | 2016-12-11 13:44 | PD ---
Physical Exam Date Seen by Provider: Dec 11, 2016 Time Seen by Provider: 13:41 Narrative Patient here for Med Refill of his Depakote for Bipolar. Patient has been out for 1 week. Patient went to [facility], and was referred here. Patient denied Suicidal or Homicidal Ideation. No Other Complaints. Vital Signs Stable. Patient waiting for Bed Placement. Data Data Last Documented VS Vital Signs Date Time Temp Pulse Resp B/P Pulse Ox O2 Delivery O2 Flow Rate FiO2 12/11/16 13:37 97.6 58 16 145/85 99 Room Air [facility] Medical Record Reviewed: Yes Supervised Visit with GAYLE: Yes Condition: Stable Darryl Landeros Dec 11, 2016 13:44
[2016-12-11] MEDS ORDERED: OLAN10TA PO (20:23)
[2016-12-11] MEDS ORDERED: DIVA500T PO (20:23)
[2016-12-11] MEDS ORDERED: CELE40TA PO (20:23)
== END 2016-12-11 14:25 | disposition left against medical advice (07) ==
LOC: NEPB 13:35
DX: Z76.0 Encounter for issue of repeat prescription (principal); Z53.21 Procedure and treatment not carried out due to patient leaving prior to being seen by health care provider
CPT/HCPCS: 99281

== ENCOUNTER 2016-12-11 19:54 | Emergency (ER) | payer SELFPAY ==
[~2016-12-11] VITALS: Ht 180.3 cm; Wt 75.0 kg
[2016-12-11 19:56] VITALS: BP 141/75; PULSE 81; RESP 14; TEMP 98.1; O2SAT 97
[2016-12-11] MEDS ORDERED: CELE40TA PO (20:23)
[2016-12-11] MEDS ORDERED: DIVA500T PO (20:23)
[2016-12-11] MEDS ORDERED: OLAN10TA PO (20:23)
--- NOTE | 2016-12-11 20:29 | PD ---
HPI Chief Complaint: Complaint Time Seen by Provider: 20:23 Travel History International Travel<30 days: No Contact w/Intl Traveler<30days: No Traveled to known affect area: No History of Present Illness HPI 36-year-old black male presents to emergency department requesting a refill of his bipolar medications. He states that he is out of his medications and missed his last appointment to be seen at [email or web address]. He states that he had a job interview that he had go to. He states that he has a plan on making another appointment with them. He denies any suicidal or homicidal ideation. He does state that he has a tender lesion on his scrotum. He states that he feels that this was an irritation from riding his bike. He denies any urethral discharge. No dysuria or frequency. PFSH Past Medical History Blood Disorders: No Bipolar Disorder: Yes Anxiety: Yes Depression: Yes Cancer: No Cardiovascular Problems: No Diabetes: No Endocrine: No Genitourinary: No Headaches: No Immune Disorder: No Musculoskeletal: No Neurologic: No Psychiatric: Yes (Bipolar) Respiratory: No Immunizations Current: Yes Seizures: No Social History Alcohol Use: Yes Tobacco Use: Yes Substance Use: Yes (marijuana) Allergies-Medications (Allergen,Severity, Reaction): Coded Allergies: Latuda (Unverified Allergy, Mild, 12/11/16) Percocet (Unverified Allergy, Mild, 12/11/16) Reported Meds & Prescriptions Reported Meds & Active Scripts Active Divalproex DR (Divalproex Sodium) 500 Mg Tabdr 500 Mg PO BID 7 Days Celexa (Citalopram Hydrobromide) 40 Mg Tab 40 Mg PO DAILY 7 Days Olanzapine 10 Mg Tab 10 Mg PO HS 7 Days Review of Systems Except as stated in HPI: all other systems reviewed are Neg Physical Exam Narrative GENERAL: This is a well-nourished, well-developed patient, in no apparent distress. SKIN: No rashes, ecchymoses or lesions. Warm and dry. HEAD: Atraumatic. Normocephalic. EYES: PERRL, EOMI, no discharge or injection. No scleral icterus. EARS: Clear NOSE: Nasal turbinates appear normal. THROAT: Mucosa pink and moist. Airway patent. NECK: Trachea midline. supple, moves head freely. LUNGS: Clear to auscultation. CV: Regular in rhythm. ABDOMEN: Soft nontender. EXT: No clubbing cyanosis or edema. GENITOURINARY: Circumcised. Testes descended bilaterally without evidence of rotation. Positive raised papular warty lesions noted on the scrotum and shaft of his penis. These appear to be genital warts. I see no signs of any secondary infection. There is no erythema, warmth or edema. Scrotal contents appear normal. No scrotal tenderness. No urethral discharge. Data Data Last Documented VS Vital Signs Date Time Temp Pulse Resp B/P Pulse Ox O2 Delivery O2 Flow Rate FiO2 12/11/16 19:56 98.1 81 14 141/75 97 Room Air [facility] Medical Decision Making Medical Screen Exam Complete: Yes Emergency Medical Condition: Yes Medical Record Reviewed: Yes Differential Diagnosis Differential diagnoses: Bipolar, schizoaffective disorder, STD, abrasion Narrative Course Patient denies any suicidal homicidal ideation. He plans on following up with [email or web address]. This is bipolar, genital warts Diagnosis Primary Impression: Bipolar affective disorder, depressed Qualified Code: F31.31 - Bipolar affective disorder, currently depressed, mild Additional Impression: Genital warts Referrals: [facility] (Out patient) 1 day [facility] Dept. 1 day Patient Instructions: General Instructions Additional Instructions: Rest. Follow-up with [email or web address] for further refills. Follow-up with [facility] Department Med/Other Pt SpecificInfo: Prescription(s) given Scripts Olanzapine 10 Mg Tab10 Mg PO HS 7 Days Ref 3 Prov:Tae Rousseau MD 12/11/[address] 500 Mg [id number] Mg PO BID 7 Days Ref 3 Prov:Tae Rousseau MD 12/11/16 Citalopram (Celexa)40 Mg Tab40 Mg PO DAILY 7 Days Ref 3 Prov:Tae Rousseau MD 12/11/16 Disposition: 01 DISCHARGE HOME Condition: Stable Kaiden Kahn Dec 11, 2016 20:29
== END 2016-12-11 20:54 | disposition home or self-care (01) ==
LOC: NEPB 19:54
DX: F31.9 Bipolar disorder, unspecified (principal); A63.0 Anogenital (venereal) warts; Z76.0 Encounter for issue of repeat prescription
CPT/HCPCS: 99283

== ENCOUNTER 2017-01-11 00:48 | Emergency (ER) | payer SELFPAY ==
[~2017-01-11] VITALS: Ht 180.3 cm; Wt 75.0 kg
[2017-01-11 00:50] VITALS: BP 132/84; PULSE 70; RESP 18; TEMP 98.2; O2SAT 99
== END 2017-01-11 01:35 | disposition left against medical advice (07) ==
LOC: NED 00:48
DX: R10.9 Unspecified abdominal pain (principal)
CPT/HCPCS: 99281

== ENCOUNTER 2017-05-27 02:53 | Emergency (ER) | payer OTHER ==
[2017-05-27 03:15] VITALS: BP 139/96; PULSE 90; RESP 20; TEMP 98.1; O2SAT 97
[2017-05-27 04:07] LABS: AUTOMATED NEUTROPHIL # 5.5 TH/MM3 (1.8-7.7); BASOPHIL # 0.1 TH/MM3 (0-0.2); BASOPHIL % 0.9 % (0.0-2.0); EOSINOPHIL % 0.5 % (0.0-4.0); HEMATOCRIT 44.2 % (39.0-51.0); HEMO FLAGS DIFF FINAL; LYMPH % 31.9 % (9.0-44.0); LYMPHOCYTE # 2.8 TH/MM3 (1.0-4.8); MEAN CELL VOLUME 94.6 FL (80.0-100.0); MEAN CORPUSCULAR HEMOGLOBIN 32.4 PG (27.0-34.0); MEAN CORPUSCULAR HGB CONC 34.3 % (32.0-36.0); MONO % 3.1 % (0.0-8.0); NEUT % 63.6 % (16.0-70.0); PLATELET COUNT 205 TH/MM3 (150-450); RED BLOOD COUNT 4.67 MIL/MM3 (4.50-5.90); RED CELL DISTRIBUTION WIDTH 13.9 % (11.6-17.2); WHITE BLOOD COUNT 8.7 TH/MM3 (4.0-11.0)
--- NOTE | 2017-05-27 04:17 | PD ---
HPI Chief Complaint: Psychiatric Symptoms Time Seen by Provider: 04:07 Travel History International Travel<30 days: No Contact w/Intl Traveler<30days: No Traveled to known affect area: No History of Present Illness HPI 37-year-old black male presents to emergency department under [place] by [place]. The patient allegedly has a history of bipolar and has been off his medications for several months. He also states that he's been indicating himself with crack cocaine, marijuana and alcohol. Patient now states that he's been feeling increasingly depressed and having suicidal thoughts but has no current plan. No homicidal ideation. No toxic ingestion. PFSH Past Medical History Blood Disorders: No Bipolar Disorder: Yes Anxiety: Yes Depression: Yes Cancer: No Cardiovascular Problems: No Diabetes: No Endocrine: No Genitourinary: No Headaches: No Immune Disorder: No Musculoskeletal: No Neurologic: No Psychiatric: Yes (Bipolar) Respiratory: No Immunizations Current: Yes Seizures: No Tetanus Vaccination: < 5 Years Past Surgical History Surgical History: No Previous Surgery Social History Alcohol Use: Yes Tobacco Use: Yes Substance Use: Yes (marijuana and crack cocaine) Allergies-Medications (Allergen,Severity, Reaction): Coded Allergies: acetaminophen (Unverified Allergy, Mild, 05/27/17) lurasidone (Unverified Allergy, Mild, 05/27/17) oxycodone (Unverified Allergy, Mild, 05/27/17) Reported Meds & Prescriptions Reported Meds & Active Scripts Active Olanzapine 10 Mg Tab 10 Mg PO HS [address] (Divalproex Sodium) 500 Mg Tabdr 500 Mg PO BID 7 Days Celexa (Citalopram Hydrobromide) 40 Mg Tab 40 Mg PO DAILY 7 Days Review of Systems Except as stated in HPI: all other systems reviewed are Neg Physical Exam Narrative GENERAL: Well-nourished, well-developed patient. SKIN: Warm and dry. HEAD: Normocephalic and atraumatic. EYES: No scleral icterus. No injection or drainage. ENT: No nasal drainage noted. Mucous membranes pink. Airway patent. NECK: Supple, trachea midline. Moves head freely without obvious discomfort. CARDIOVASCULAR: Regular rate and rhythm without murmurs, gallops, or rubs. RESPIRATORY: Breath sounds equal bilaterally. No accessory muscle use. GASTROINTESTINAL: Abdomen soft, non-tender, nondistended. EXTREMITIES: No cyanosis or edema. BACK: Nontender without obvious deformity. No CVA tenderness. NEURO: Patient is alert and oriented. no sensorimotor deficits. Nonfocal. Normal speech. PSYCH: Poor judgment. Insight is fair. No auditory or visual hallucinations. Data Data Last Documented VS Vital Signs Date Time Temp Pulse Resp B/P (MAP) Pulse Ox O2 Delivery O2 Flow Rate FiO2 05/27/17 03:15 98.1 90 20 139/96 (110) 97 Orders Orders Complete Blood Count With Diff (05/27/17 03:31) Comprehensive Metabolic Panel (05/27/17 03:31) Psych Screen (05/27/17 03:31) Drug Screen, Random Urine (05/27/17 03:31) Alcohol (Ethanol) (05/27/17 03:31) Salicylates (Aspirin) (05/27/17 03:31) Tylenol (Acetaminophen) (05/27/17 03:31) Valproic Acid (Depakene) (05/27/17 04:33) Lorazepam Inj (Ativan Inj) (05/27/17 04:45) Restraints Violent (05/27/17 04:33) Labs Laboratory Tests Test 05/27/17 03:05 White Blood Count 8.7 TH/MM3 Red Blood Count 4.67 MIL/MM3 Hemoglobin 15.1 GM/DL Hematocrit 44.2 % Mean Corpuscular Volume 94.6 FL Mean Corpuscular Hemoglobin 32.4 PG Mean Corpuscular Hemoglobin Concent 34.3 % Red Cell Distribution Width 13.9 % Platelet Count 205 TH/MM3 Mean Platelet Volume 9.8 FL Neutrophils (%) (Auto) 63.6 % Lymphocytes (%) (Auto) 31.9 % Monocytes (%) (Auto) 3.1 % Eosinophils (%) (Auto) 0.5 % Basophils (%) (Auto) 0.9 % Neutrophils # (Auto) 5.5 TH/MM3 Lymphocytes # (Auto) 2.8 TH/MM3 Monocytes # (Auto) 0.3 TH/MM3 Eosinophils # (Auto) 0.0 TH/MM3 Basophils # (Auto) 0.1 TH/MM3 CBC Comment DIFF FINAL Differential Comment Blood Urea Nitrogen 11 MG/DL Creatinine 1.18 MG/DL Random Glucose 100 MG/DL Total Protein 7.9 GM/DL Albumin 4.2 GM/DL Calcium Level 8.6 MG/DL Alkaline Phosphatase 65 U/L Aspartate Amino Transf (AST/SGOT) 26 U/L Alanine Aminotransferase (ALT/SGPT) 46 U/L Total Bilirubin 0.3 MG/DL Sodium Level 140 MEQ/L Potassium Level 3.6 MEQ/L Chloride Level 109 MEQ/L Carbon Dioxide Level 21.4 MEQ/L Anion Gap 10 MEQ/L Estimat Glomerular Filtration Rate 83 ML/MIN Salicylates Level 2.4 MG/DL Urine Opiates Screen NEG Acetaminophen Level LESS THAN 2.0 MCG/ML Urine Barbiturates Screen NEG Valproic Acid (Depakene) Level 5 MCG/ML Urine Amphetamines Screen NEG Urine Benzodiazepines Screen NEG Urine Cocaine Screen POS Urine Cannabinoids Screen NEG Ethyl Alcohol Level 156 MG/DL MDM Medical Decision Making Medical Screen Exam Complete: Yes Emergency Medical Condition: Yes Medical Record Reviewed: Yes Interpretation(s) Laboratory Tests Test 05/27/17 03:05 White Blood Count 8.7 TH/MM3 Red Blood Count 4.67 MIL/MM3 Hemoglobin 15.1 GM/DL Hematocrit 44.2 % Mean Corpuscular Volume 94.6 FL Mean Corpuscular Hemoglobin 32.4 PG Mean Corpuscular Hemoglobin Concent 34.3 % Red Cell Distribution Width 13.9 % Platelet Count 205 TH/MM3 Mean Platelet Volume 9.8 FL Neutrophils (%) (Auto) 63.6 % Lymphocytes (%) (Auto) 31.9 % Monocytes (%) (Auto) 3.1 % Eosinophils (%) (Auto) 0.5 % Basophils (%) (Auto) 0.9 % Neutrophils # (Auto) 5.5 TH/MM3 Lymphocytes # (Auto) 2.8 TH/MM3 Monocytes # (Auto) 0.3 TH/MM3 Eosinophils # (Auto) 0.0 TH/MM3 Basophils # (Auto) 0.1 TH/MM3 CBC Comment DIFF FINAL Differential Comment Blood Urea Nitrogen 11 MG/DL Creatinine 1.18 MG/DL Random Glucose 100 MG/DL Total Protein 7.9 GM/DL Albumin 4.2 GM/DL Calcium Level 8.6 MG/DL Alkaline Phosphatase 65 U/L Aspartate Amino Transf (AST/SGOT) 26 U/L Alanine Aminotransferase (ALT/SGPT) 46 U/L Total Bilirubin 0.3 MG/DL Sodium Level 140 MEQ/L Potassium Level 3.6 MEQ/L Chloride Level 109 MEQ/L Carbon Dioxide Level 21.4 MEQ/L Anion Gap 10 MEQ/L Estimat Glomerular Filtration Rate 83 ML/MIN Salicylates Level 2.4 MG/DL Urine Opiates Screen NEG Acetaminophen Level LESS THAN 2.0 MCG/ML Urine Barbiturates Screen NEG Valproic Acid (Depakene) Level 5 MCG/ML Urine Amphetamines Screen NEG Urine Benzodiazepines Screen NEG Urine Cocaine Screen POS Urine Cannabinoids Screen NEG Ethyl Alcohol Level 156 MG/DL Differential Diagnosis MDM: High Differential diagnoses: Schizophrenia, schizoaffective disorder, bipolar, anxiety, depression, adjustment reaction, mood disorder NOS, ODD, depressive disorder NOS, substance induced mood disorder, infection,electrolyte abnormality , malingering. Narrative Course Mental health screening discussed with the patient. Psychiatric screen ordered. The patient's been medically cleared. This is medical clearance for psychiatric admission, substance induced mood disorder, bipolar Diagnosis Primary Impression: Medical clearance for psychiatric admission Additional Impressions: Substance induced mood disorder bipolar Condition: Stable Kaiden Kahn May 27, 2017 04:17
[2017-05-27 04:28] LABS: ANION GAP 10 MEQ/L (5-15)
[2017-05-27 04:33] LABS: ACETAMINOPHEN LESS THAN 2.0 MCG/ML (10.0-30.0); ALCOHOL 156 MG/DL (0-5); ALKALINE PHOSPHATASE 65 U/L (45-117); ALT (GPT) 46 U/L (12-78); AST (GOT) 26 U/L (15-37); BICARBONATE 21.4 MEQ/L (21.0-32.0); BLOOD UREA NITROGEN 11 MG/DL (7-18); CHLORIDE 109 MEQ/L (98-107); GLOMERULAR FILTRATION RATE 83 ML/MIN (>89); POTASSIUM 3.6 MEQ/L (3.5-5.1); SODIUM (NA) 140 MEQ/L (136-145); TOTAL BILIRUBIN ADULT 0.3 MG/DL (0.2-1.0)
[2017-05-27] MEDS ORDERED: LORazepam 2 MG/ML VIAL IM ONE (04:45)
[2017-05-27 07:20] VITALS: BP 106/56; PULSE 80; RESP 16; O2SAT 96
[2017-05-27 14:41] VITALS: BP 123/79
[2017-05-27 17:34] VITALS: BP 123/79; PULSE 71; RESP 16; O2SAT 96
[2017-05-27 17:54] VITALS: BP 137/80; PULSE 72; RESP 20; O2SAT 99
--- NOTE | 2017-05-27 18:33 | PD ---
History of Present Illness Chief Complaint: Psychiatric Symptoms Time Seen by Provider: 18:15 Travel History International Travel<30 Days: No Contact w/Intl Traveler<30days: No Known affected area: No Legal Status Legal Status: Storey Act Storey Act Signed By: Vanna Storey Act Comment: BA signed by: Vanna AGUILAR, Nakita Eaton#[id number], Case# [id number] History of Present Illness: History of Present Illness HPI 37-year-old black male with history of bipolar disorder who presents to the emergency department under Storey act by . The report alleges that the patient has been off his medications, has been drinking alcohol and smoking crack and taking Benadryl. The patient 's toxicology is positive for cocaine, and BAl of 156. The patient was monitored in J pod until he was clinically sober and he presented no behavioral concerns and no suicidality. EMR reviewed. He has had several admissions to [facility] psychiatric unit and the last one was in November of this year. Current VPA level is 5 The patient is seen in his room. He is alert and oriented, wearing hospital pajamas and maintaining basic hygiene. His speech is clear, logical, normal rate, tone w no pressure of speech. He states " I did some stuff I should not have done. I made a wrong decision and used alcohol and smoked crack". He denies that he has been drinking on a daily basis and states that he does not use crack often. He is not suicidal and not homicidal. There is no psychosis. he is worried because he does not want to miss work later today and is requesting to be discharged. PFSH Past Medical History Blood Disorders: No Bipolar Disorder: Yes Anxiety: Yes Depression: Yes Cancer: No Cardiovascular Problems: No Diabetes: No Endocrine: No Genitourinary: No Headaches: No Immune Disorder: No Musculoskeletal: No Neurologic: No Psychiatric: Yes (Bipolar) Respiratory: No Immunizations Current: Yes Seizures: No Tetanus Vaccination: < 5 Years Past Surgical History Surgical History: No Previous Surgery Psychiatric History Psychiatric History Hx Psychiatric Treatment: [facility] on several occasions. last admit in november 2016. Has one previous suicide attempt by overdosing. Outpatietn care at [facility] with Dr. Gatica. Poor medication compliance. History of Inpatient Treatment: Yes ([facility]) Guns or firearms in home: No Social History Single male. Lives with his sister. Works at [employer] Hx Alcohol Use: Yes Hx Tobacco Use: Yes Hx Substance Use: No (denies) Substance Use Type: Alcohol, Crack Other Substances Used: admits to drinking etoh and smoking crack Hx of Substance Use Treatment: No Family Psychiatric History Denies any Allergies-Medications (Allergen,Severity, Reaction): Coded Allergies: acetaminophen (Unverified Allergy, Mild, 05/27/17) lurasidone (Unverified Allergy, Mild, 05/27/17) oxycodone (Unverified Allergy, Mild, 05/27/17) Reported Meds & Prescriptions Reported Meds & Active Scripts Active Olanzapine 10 Mg Tab 10 Mg PO HS [address] (Divalproex Sodium) 500 Mg Tabdr 500 Mg PO BID 7 Days Celexa (Citalopram Hydrobromide) 40 Mg Tab 40 Mg PO DAILY 7 Days Review of Systems Except as stated in HPI: all other systems reviewed are Neg Exam Alert: Yes [place]: Person (ox4) Mood: Calm Affect: Appropriate Speech: Clear, Logical Eye Contact: Normal Memory Intact: Comment (No impairmetn) Hallucinations: Other (deneis any) Delusions: No Suicidal: Ideation (Denies any) Homicidal: Ideation (Denies any) Insight/Judgement Poor into illness. Not impaired. MDM Medical Decision Making Medical Record Reviewed: Yes Assessment/Plan 37-year-old black male with history of bipolar disorder who presents to the emergency department under Storey act by PD. The report alleges that the patient has been off his medications, has been drinking alcohol and smoking crack and taking Benadryl. The patient 's toxicology is positive for cocaine, and BAl of 156. The patient was monitored in J pod until he was clinically sober and he presented no behavioral concerns and no suicidality. Patient now clinically sober. He denies any suicidal or homicidal ideation and is requesting discharge as he does not want to loose his job. he is counseled regarding medication adherence as well as to negative effects of substance use Storey act is lifted. Patient is psychiatrically clear for discharge from ED. He is encouraged to continue treatment with [facility]. . Orders Orders Complete Blood Count With Diff (05/27/17 03:31) Comprehensive Metabolic Panel (05/27/17 03:31) Psych Screen (05/27/17 03:31) Drug Screen, Random Urine (05/27/17 03:31) Alcohol (Ethanol) (05/27/17 03:31) Salicylates (Aspirin) (05/27/17 03:31) Tylenol (Acetaminophen) (05/27/17 03:31) Valproic Acid (Depakene) (05/27/17 04:33) Lorazepam Inj (Ativan Inj) (05/27/17 04:45) Restraints Violent (05/27/17 04:33) Diet Regular Basic (05/27/17 Breakfast) Diet Regular Basic (05/27/17 Dinner) Results Vital Signs Date Time Temp Pulse Resp B/P (MAP) Pulse Ox O2 Delivery O2 Flow Rate FiO2 05/27/17 17:54 72 20 137/80 (99) 99 Room Air 05/27/17 17:34 71 16 123/79 (94) 96 Room Air 05/27/17 14:41 71 123/79 (94) 05/27/17 07:20 80 16 106/56 (73) 96 Room Air 05/27/17 07:20 80 16 05/27/17 03:15 98.1 90 20 139/96 (110) 97 Laboratory Tests Test 05/27/17 03:05 White Blood Count 8.7 Red Blood Count 4.67 Hemoglobin 15.1 Hematocrit 44.2 Mean Corpuscular Volume 94.6 Mean Corpuscular Hemoglobin 32.4 Mean Corpuscular Hemoglobin Concent 34.3 Red Cell Distribution Width 13.9 Platelet Count 205 Mean Platelet Volume 9.8 Neutrophils (%) (Auto) 63.6 Lymphocytes (%) (Auto) 31.9 Monocytes (%) (Auto) 3.1 Eosinophils (%) (Auto) 0.5 Basophils (%) (Auto) 0.9 Neutrophils # (Auto) 5.5 Lymphocytes # (Auto) 2.8 Monocytes # (Auto) 0.3 Eosinophils # (Auto) 0.0 Basophils # (Auto) 0.1 CBC Comment DIFF FINAL Differential Comment Blood Urea Nitrogen 11 Creatinine 1.18 Random Glucose 100 Total Protein 7.9 Albumin 4.2 Calcium Level 8.6 Alkaline Phosphatase 65 Aspartate Amino Transf (AST/SGOT) 26 Alanine Aminotransferase (ALT/SGPT) 46 Total Bilirubin 0.3 Sodium Level 140 Potassium Level 3.6 Chloride Level 109 Carbon Dioxide Level 21.4 Anion Gap 10 Estimat Glomerular Filtration Rate 83 Salicylates Level 2.4 Urine Opiates Screen NEG Acetaminophen Level LESS THAN 2.0 Urine Barbiturates Screen NEG Valproic Acid (Depakene) Level 5 Urine Amphetamines Screen NEG Urine Benzodiazepines Screen NEG Urine Cocaine Screen POS Urine Cannabinoids Screen NEG Ethyl Alcohol Level 156 Diagnosis Primary Impression: Substance induced mood disorder Additional Impression: Bipolar affective disorder, depressed Psychiatrically Cleared: Yes Med/ Other Pt Specific Info: No Change to Meds Disposition: 01 DISCHARGE HOME Condition: Stable Problem Qualifiers Gosia Medina [facility] May 27, 2017 18:33
--- NOTE | 2017-05-27 18:41 | PD ---
Physical Exam Date Seen by Provider: May 27, 2017 Time Seen by Provider: 18:39 Narrative For full history and physical examination please see previous provider's notes. Data Data Last Documented VS Vital Signs Date Time Temp Pulse Resp B/P (MAP) Pulse Ox O2 Delivery O2 Flow Rate FiO2 05/27/17 17:54 72 20 137/80 (99) 99 Room Air 05/27/17 03:15 98.1 Orders Orders Complete Blood Count With Diff (05/27/17 03:31) Comprehensive Metabolic Panel (05/27/17 03:31) Psych Screen (05/27/17 03:31) Drug Screen, Random Urine (05/27/17 03:31) Alcohol (Ethanol) (05/27/17 03:31) Salicylates (Aspirin) (05/27/17 03:31) Tylenol (Acetaminophen) (05/27/17 03:31) Valproic Acid (Depakene) (05/27/17 04:33) Lorazepam Inj (Ativan Inj) (05/27/17 04:45) Restraints Violent (05/27/17 04:33) Diet Regular Basic (05/27/17 Breakfast) Diet Regular Basic (05/27/17 Dinner) Labs Laboratory Tests Test 05/27/17 03:05 White Blood Count 8.7 TH/MM3 Red Blood Count 4.67 MIL/MM3 Hemoglobin 15.1 GM/DL Hematocrit 44.2 % Mean Corpuscular Volume 94.6 FL Mean Corpuscular Hemoglobin 32.4 PG Mean Corpuscular Hemoglobin Concent 34.3 % Red Cell Distribution Width 13.9 % Platelet Count 205 TH/MM3 Mean Platelet Volume 9.8 FL Neutrophils (%) (Auto) 63.6 % Lymphocytes (%) (Auto) 31.9 % Monocytes (%) (Auto) 3.1 % Eosinophils (%) (Auto) 0.5 % Basophils (%) (Auto) 0.9 % Neutrophils # (Auto) 5.5 TH/MM3 Lymphocytes # (Auto) 2.8 TH/MM3 Monocytes # (Auto) 0.3 TH/MM3 Eosinophils # (Auto) 0.0 TH/MM3 Basophils # (Auto) 0.1 TH/MM3 CBC Comment DIFF FINAL Differential Comment Blood Urea Nitrogen 11 MG/DL Creatinine 1.18 MG/DL Random Glucose 100 MG/DL Total Protein 7.9 GM/DL Albumin 4.2 GM/DL Calcium Level 8.6 MG/DL Alkaline Phosphatase 65 U/L Aspartate Amino Transf (AST/SGOT) 26 U/L Alanine Aminotransferase (ALT/SGPT) 46 U/L Total Bilirubin 0.3 MG/DL Sodium Level 140 MEQ/L Potassium Level 3.6 MEQ/L Chloride Level 109 MEQ/L Carbon Dioxide Level 21.4 MEQ/L Anion Gap 10 MEQ/L Estimat Glomerular Filtration Rate 83 ML/MIN Salicylates Level 2.4 MG/DL Urine Opiates Screen NEG Acetaminophen Level LESS THAN 2.0 MCG/ML Urine Barbiturates Screen NEG Valproic Acid (Depakene) Level 5 MCG/ML Urine Amphetamines Screen NEG Urine Benzodiazepines Screen NEG Urine Cocaine Screen POS Urine Cannabinoids Screen NEG Ethyl Alcohol Level 156 MG/DL MDM Medical Record Reviewed: Yes Supervised Visit with GAYLE: No Narrative Course Patient was initially seen and evaluated in emergency department, he was medically cleared. He was then evaluated by psychiatric nurse practitioner. He was deemed safe for discharge and the Storey act was listed. Patient was diagnosed with substance-induced mood disorder and he is to follow-up at [facility]. Please see previous provider's notes. Patient is stable for discharge. Diagnosis Primary Impression: Medical clearance for psychiatric admission Additional Impressions: Substance induced mood disorder bipolar Referrals: [facility] 1 day Patient Instructions: General Instructions Additional Instruction: Follow-up at [facility] Avoid illicit drug use Return to emergency department for any new or worsening symptoms Follow-up with your primary doctor Med/Other Pt SpecificInfo: No Change to Meds Disposition: 01 DISCHARGE HOME Condition: Stable Lay Balbuena May 27, 2017 18:41
== END 2017-05-27 19:00 | disposition home or self-care (01) ==
LOC: NEPD 02:53 → NEPJ 19:00
DX: F19.94 Other psychoactive substance use, unspecified with psychoactive substance-induced mood disorder (principal); F10.94 Alcohol use, unspecified with alcohol-induced mood disorder; F31.9 Bipolar disorder, unspecified; Y90.6 Blood alcohol level of 120-199 mg/100 ml; Z79.899 Other long term (current) drug therapy
CPT/HCPCS: 80053; 80164; 80307; 85025; 96372; 99284; J2060